=== PATIENT | female | born 1950 | race Caucasian/White ===

== ENCOUNTER 2018-06-14 09:31 | Observation (INO) | payer OTHER ==
[2018-06-14] MEDS ORDERED: NS 500 ML IV ONE (09:41)
[2018-06-14] MEDS ORDERED: MAG HYDROX/AL HYDROX/SIMETH 30 ML UDCUP PO ONE (09:49)
[2018-06-14] MEDS ORDERED: HYOSCYAMINE SULFATE 0.125 MG TAB PO ONE (09:49)
[2018-06-14] MEDS ORDERED: LIDOCAINE 2% VISCOUS 15 ML UDCUP PO ONE (09:49)
--- NOTE | 2018-06-14 09:49 | EDPHY ---
H & P Time Seen by Provider: 06/14/18 09:40 HPI/ROS: CHIEF COMPLAINT: Chest tightness HISTORY OF PRESENT ILLNESS: Patient is a 67-year-old female who developed some chest tightness on Saturday that she associated with previous episodes of GERD. Then on Saturday she began vomiting. She vomited about 6 times. No diarrhea. No fever. Her vomiting resolved on and Saturday however she is very sleepy and slept most of the day and only had soup to eat. Then yesterday evening about 12 hr ago she developed some chest tightness again that she again associated with heartburn. She has not taken any medications. She presented to an urgent care this morning who called an ambulance. She was given nitroglycerin and aspirin from EMS with no change in her symptoms. She does have a history of Graves disease and celiac disease. No history of cardiac disease. No previous cardiac testing. No fevers. No shortness of breath. Did drive from [place] last week. She has not had any leg pain or swelling. Severity: Moderate Modifying factors: None REVIEW OF SYSTEMS: Constitutional: denies: chills, fever, recent illness, recent injury EENTM: denies: blurred vision, double vision, nose congestion Respiratory: denies: cough, shortness of breath Cardiac: denies: chest pain, irregular heart rate, lightheadedness, palpitations Gastrointestinal/Abdominal: denies: abdominal pain, diarrhea, nausea, vomiting, blood streaked stools Genitourinary: denies: dysuria, frequency, hematuria, pain Musculoskeletal: denies: joint pain, muscle pain Skin: denies: lesions, rash, jaundice, bruising Neurological: denies: headache, numbness, paresthesia, tingling, dizziness, weakness Hematologic/Lymphatic: denies: blood clots, easy bleeding, easy bruising Immunologic/allergic: denies: HIV/AIDS, transplant 10 systems reviewed and negative except as noted EXAM: GENERAL: Well-appearing, well-nourished and in no acute distress. HEAD: Atraumatic, normocephalic. EYES: Pupils equal round and reactive to light, extraocular movements intact, sclera anicteric, conjunctiva are normal. ENT: TMs normal, nares patent, oropharynx clear without exudates. Moist mucous membranes. NECK: Normal range of motion, supple without lymphadenopathy or JVD. LUNGS: Breath sounds clear to auscultation bilaterally and equal. No wheezes rales or rhonchi. HEART: Regular rate and rhythm without murmurs, rubs or gallops. ABDOMEN: Soft, nontender, normoactive bowel sounds. No guarding, no rebound. No masses appreciated. BACK: No CVA tenderness, no spinal tenderness, step-offs or deformities EXTREMITIES: Normal range of motion, no pitting or edema. No clubbing or cyanosis. NEUROLOGICAL: Cranial nerves II through XII grossly intact. Normal speech, normal gait. 5/5 strength, normal movement in all extremities, normal sensation , normal reflexes PSYCH: Normal mood, normal affect. SKIN: Warm, dry, normal turgor, no visible rashes or lesions. Source: Patient Exam Limitations: No limitations - Medical/Surgical History Hx Asthma: No Hx Chronic Respiratory Disease: No Hx Diabetes: No Hx Cardiac Disease: No Hx Renal Disease: No Hx Cirrhosis: No Hx Alcoholism: No Hx HIV/AIDS: No Hx Splenectomy or Spleen Trauma: No - Family History Significant Family History: No pertinent family hx - Social History Alcohol Use: None Drug Use: None Constitutional: Initial Vital Signs Temperature (C) 36.6 C 06/14/18 09:31 Heart Rate 111 H 06/14/18 09:31 Respiratory Rate 18 06/14/18 09:31 Blood Pressure 134/112 H 06/14/18 09:31 O2 Sat (%) 94 06/14/18 09:31 O2 Delivery Mode Room Air Allergies/Adverse Reactions: No Known Allergies Allergy (Unverified 06/14/18 09:59) Home Medications: Medication Instructions Recorded Methimazole [Tapazole 5MG (*)] 5 mg PO DAILY 06/14/18 Medical Decision Making - Diagnostics EKG Interpretation: An EKG obtained and was read and documented in trace view. Please see trace view for full reading and report. Sinus rhythm, minimal ST depression inferior leads, no reciprocal changes A repeat EKG obtained and was read and documented in trace view. Please see trace view for full reading and report. Minimal ST elevation lead V2. Normalized in inferior leads A repeat EKG obtained and was read and documented in trace view. Please see trace view for full reading and report. Similar to previous Imaging Results: Imaging Impressions Chest X-Ray 06/14/18 09:42 Impression: Possible airways disease. Imaging: Discussed imaging studies w/ house calls nurse practitioner Radiologist ED Course/Re-evaluation: 10:20 a.m. Patient states that she feels completely better after the GI cocktail. Her lab work thus far is reassuring. Her D-dimer is age adjusted negative. Her EKG however is less reassuring. She had slight ST depression in her initial EKG. That is improved however she now has slight ST elevation less than 1 mm in the anterior leads. I suggested admission for serial EKGs and troponin. She and her daughter are in agreement with this plan. 10:40 a.m. I discussed the case with Dr. Alexis who agrees with admission. Will repeat EKG. Differential Diagnosis: Partial list of the Differential diagnosis considered include but were not limited to; chest pain, GERD and although unlikely based on the history and physical exam, I also considered PE, pneumonia, dissection. - Data Points Laboratory Results: Laboratory Results 06/14/18 09:35 06/14/18 09:35 06/14/18 06/14/18 06/14/18 09:43 09:35 09:35 WBC RBC Hgb Hct MCV MCH MCHC RDW Plt Count MPV Neut % (Auto) Lymph % (Auto) [place] % (Auto) Eos % (Auto) Baso % (Auto) Nucleat RBC Rel Count Absolute Neuts (auto) Absolute Lymphs (auto) Absolute Monos (auto) Absolute Eos (auto) Absolute Basos (auto) Absolute Nucleated RBC Immature Gran % Immature Gran # D-Dimer 0.53 ug/mLFEU H ug/mLFEU (0.00-0.50) Sodium 135 mEq/L mEq/L (135-145) Potassium 4.1 mEq/L mEq/L (3.5-5.2) Chloride 102 mEq/L mEq/L (97-110) Carbon Dioxide 21 mEq/l L mEq/l (22-31) Anion Gap 12 mEq/L mEq/L (6-14) BUN 32 mg/dL H mg/dL (7-23) Creatinine 0.7 mg/dL mg/dL (0.6-1.0) Estimated GFR > 60 Glucose 85 mg/dL mg/dL (70-100) Calcium 9.4 mg/dL mg/dL (8.5-10.4) Total Bilirubin 1.2 mg/dL mg/dL (0.1-1.4) Conjugated Bilirubin 0.4 mg/dL mg/dL (0.0-0.5) Unconjugated Bilirubin 0.8 mg/dL mg/dL (0.0-1.1) AST 21 IU/L IU/L (14-46) ALT 26 IU/L IU/L (9-52) Alkaline Phosphatase 85 IU/L IU/L (38-126) POC Troponin I 0.00 ng/mL ng/mL (0.00-0.08) Total Protein 7.1 g/dL g/dL (6.3-8.2) Albumin 4.6 g/dL g/dL (3.5-5.0) Lipase 101 IU/L IU/L (23-300) 06/14/18 09:35 WBC 7.15 10^3/uL 10^3/uL (3.80-9.50) RBC 5.80 10^6/uL H 10^6/uL (4.18-5.33) Hgb 17.0 g/dL H g/dL (12.6-16.3) Hct 51.4 % H % (38.0-47.0) MCV 88.6 fL fL (81.5-99.8) MCH 29.3 pg pg (27.9-34.1) MCHC 33.1 g/dL g/dL (32.4-36.7) RDW 12.2 % % (11.5-15.2) Plt Count 294 10^3/uL 10^3/uL (150-400) MPV 9.5 fL fL (8.7-11.7) Neut % (Auto) 60.7 % % (39.3-74.2) Lymph % (Auto) 29.2 % % (15.0-45.0) [place] % (Auto) 8.3 % % (4.5-13.0) Eos % (Auto) 1.0 % % (0.6-7.6) Baso % (Auto) 0.7 % % (0.3-1.7) Nucleat RBC Rel Count 0.0 % % (0.0-0.2) Absolute Neuts (auto) 4.34 10^3/uL 10^3/uL (1.70-6.50) Absolute Lymphs (auto) 2.09 10^3/uL 10^3/uL (1.00-3.00) Absolute Monos (auto) 0.59 10^3/uL 10^3/uL (0.30-0.80) Absolute Eos (auto) 0.07 10^3/uL 10^3/uL (0.03-0.40) Absolute Basos (auto) 0.05 10^3/uL 10^3/uL (0.02-0.10) Absolute Nucleated RBC 0.00 10^3/uL 10^3/uL (0-0.01) Immature Gran % 0.1 % % (0.0-1.1) Immature Gran # 0.01 10^3/uL 10^3/uL (0.00-0.10) D-Dimer Sodium Potassium Chloride Carbon Dioxide Anion Gap BUN Creatinine Estimated GFR Glucose Calcium Total Bilirubin Conjugated Bilirubin Unconjugated Bilirubin AST ALT Alkaline Phosphatase POC Troponin I Total Protein Albumin Lipase Medications Given: Discontinued Medications Al Hydroxide/Mg Hydroxide (Maalox Susp) 30 ml PO ONCE ONE Stop: 06/14/18 09:50 Last Admin: 06/14/18 09:59 Dose: 30 ml Hyoscyamine Sulfate (Levsin, Hyomax-Sl) 0.25 mg PO ONCE ONE Stop: 06/14/18 09:50 Last Admin: 06/14/18 09:59 Dose: 0.25 mg Sodium Chloride (Ns) 500 mls @ 1,000 mls/hr IV EDNOW ONE PRN Reason: Protocol Stop: 06/14/18 10:10 Last Admin: 06/14/18 09:45 Dose: 500 mls Lidocaine (Lidocaine 2% Viscous) 15 ml PO ONCE ONE Stop: 06/14/18 09:50 Last Admin: 06/14/18 09:59 Dose: 15 ml Point of Care Test Results: Chemistry 06/14/18 09:43 POC Troponin I 0.00 ng/mL ng/mL (0.00-0.08) Departure - Departure Disposition: [facility] Acute Clinical Impression: Chest pain Qualifiers: Chest pain type: unspecified Qualified Code(s): R07.9 - Chest pain, unspecified Condition: Fair
[2018-06-14 09:51] LABS: PLATELET COUNT 294 10^3/uL (150-400)
--- NOTE | 2018-06-14 09:51 | CPEKG ---
Test Reason : OPEN Blood Pressure : / mmHG Vent. Rate : 101 BPM Atrial Rate : 101 BPM P-R Int : 139 ms QRS Dur : 081 ms QT Int : 355 ms P-R-T Axes : 072 044 030 degrees QTc Int : 461 ms Sinus tachycardia Minimal ST depression, inferior leads Confirmed by Jacob Rodrigez ([id number]) on 06/14/2018 9:50:43 AM Referred By: Confirmed By:Jacob Rodrigez
--- NOTE | 2018-06-14 10:22 | CPEKG ---
Test Reason : OPEN Blood Pressure : / mmHG Vent. Rate : 071 BPM Atrial Rate : 072 BPM P-R Int : 149 ms QRS Dur : 084 ms QT Int : 411 ms P-R-T Axes : 068 026 020 degrees QTc Int : 447 ms Sinus rhythm Minimal ST elevation, anterior leads Confirmed by Jacob Rodrigez ([id number]) on 06/14/2018 10:21:29 AM Referred By: Confirmed By:Jacob Rodrigez
--- NOTE | 2018-06-14 11:09 | CPEKG ---
Test Reason : OPEN Blood Pressure : / mmHG Vent. Rate : 067 BPM Atrial Rate : 067 BPM P-R Int : 148 ms QRS Dur : 080 ms QT Int : 424 ms P-R-T Axes : 065 027 027 degrees QTc Int : 448 ms Sinus rhythm Confirmed by Jacob Rodrigez ([id number]) on 06/14/2018 11:08:27 AM Referred By: Confirmed By:Jacob Rodrigez
[2018-06-14 11:59] VITALS: BP 132/61
--- NOTE | 2018-06-14 13:00 | GHP ---
DATE OF ADMISSION: 06/14/2018 CHIEF COMPLAINT: Chest pain. HISTORY OF PRESENT ILLNESS: This is a 67-year-old female, presents with chest pain. Recent history notable for having a GI illness which started Saturday, she had 6 episodes of emesis. She had what she describes as GERD at that time which resolved. Since then, she has felt somewhat fatigued and not back to her normal self, but her GI symptoms have resolved. That is until last night when she had epigastric/chest pain that is nonexertional, described as a pressure sensation. This persisted overnight, thus, she presented to the ED today. It was relieved in the ED today with a GI cocktail. When I am seeing her, she describes no chest pain. PAST MEDICAL/SURGICAL HISTORY: 1. Hypothyroid. 2. Tonsillectomy. 3. Oral surgery. MEDICATIONS: Please see medication reconciliation. ALLERGIES: No known drug allergies. FAMILY HISTORY: No early heart disease in her family. SOCIAL HISTORY: She drinks alcohol. She does not smoke. REVIEW OF SYSTEMS: 10-point review of systems is conducted and is negative except per HPI. PHYSICAL EXAM: VITAL SIGNS: Blood pressure 132/61, heart rate 68, respiration rate 15, saturating at 94% on room air. Temperature 37.3. GENERAL: The patient is a pleasant female who is resting comfortably. No acute distress. HEENT: Shows her to be normocephalic, atraumatic. CARDIOVASCULAR: Regular rate and rhythm. No murmurs, rubs, or gallops. PULMONARY: Lungs clear to auscultation bilaterally. ABDOMEN: Soft, nontender, nondistended. SKIN: Shows no rash. : No Kim. NEUROLOGIC: Shows her to be alert and oriented x3. She is moving all extremities. PSYCHIATRIC: Shows normal mood and affect. LABORATORY: Hemoglobin 17. D-dimer 0.5. Bicarb is 21, BUN 32. Troponin is negative. Lipase is negative. DATA: 1. Discussed with Dr. Rodrigez. Will admit to PCU. 2. Personally viewed and interpreted her EKGs as well as her chest x-ray. Her chest x-ray shows normal-sized heart. No acute infiltrates. Radiology read as possible airways disease. EKG shows initially some ST depression in her inferior leads. Her subsequent EKGs show mild ST elevation in V1 and V2, this may be a J-point elevation. She has no olds to compare this to. IMPRESSION AND PLAN: 1. Chest pain: Discussed with Dr. Parr. She has negative troponin after approximately 12 hours of pain. We will check another stat troponin now. Will not follow chest pain protocol exactly as this has been in discussion with Cardiology. Would consider ordering a stress test, EKG treadmill today. Dr. Parr is reviewing her EKGs to see if he feels this will be interpretable. Would also consider discharging her with close outpatient followup as she has a HEART score of approximately 3. Further workup will depend on additional conversations and lab testing. 2. Indeterminate D-dimer: This is negative for her age. She does not have any other signs or symptoms of a deep venous thrombosis, thus, will not pursue CT angiogram. 3. Erythrocythemia: Unclear if this is chronic or more long-term. She does have a mild BUN elevation, thus, this may indicate some dehydration from her previous illness. /[id number]/MODL MTDD
--- NOTE | 2018-06-14 13:25 | PDCARCONS ---
Cardiology Consult Reason for Consult: Abnormal ECG Chief Complaint: GI "bug" about 3-4 days prior Requesting Physician: Hospitalist team History of Present Illness: Patient is a 67 y/o female with unremarkable past cardiovascular history (no CAD , HTN, HLP, or DM), who presented to [facility] ER with complaints of mild chest tightness. Four days prior, the patient had issues with GI discomfort, and subsequent emesis (X6). Since that time, the patient has felt better, but both ER physician and hospitalist were told of chest tightness. No gideon "chest pains" have been noted. No PND or orthopnea. The epigastric discomfort was noted last night, and is more a pressure than anything. Given the symptoms were noted last night into today, she opted for assessment in the ER. Initial troponin (POC) was normal. First ECG with non specific ST/T wave changes (1 mm depression) to the inferior leads. Two subsequent ECGs with normal sinus rhythm and no ST/T wave changes noted. In the ER, the patient was given a GI cocktail, and this seemed to alleviate the pressure that was noted. At present, the patient is resting comfortably in bed without symptoms. Remainder of 12 point review of systems was unremarkable. History Information - Allergies/Home Medication List Allergies/Adverse Reactions: No Known Allergies Allergy (Unverified 06/14/18 09:59) Home Medications: Methimazole [Tapazole 5MG (*)] 5 mg PO DAILY 06/14/18 [Last Taken Unknown] I have personally reviewed and updated: family history, medical history, social history, surgical history Past Medical History: - Past Medical History GERD Additional medical history: hypothyroidism - Surgical History Reports: no pertinent surgical hx - Family History Positive for: non-pertinent - Social History Smoking Status: Never smoked Alcohol Use: Rarely Drug Use: None Cardiac History - Cardiac History Cardiac Risk Factors: none Timing/Duration: Days Severity: mild Severity Scale: 2 Location: epigastric Activities at Onset: none Modifying Factors: improves with: antacids Associated Symptoms: denies symptoms HIRAM Risk Evaluation age greater or equal to 65: yes greater or equal to 3 CAD risk factors: no known CAD(stenosis greater or eqaul to 50%): no ASA use in past 7 days: no severe angina(greater or equal to 2 episodes in 24hrs): no EKG ST changes greater or equal to 0.5mm: no positive cardiac marker: no Total Score: 1 HIRAM Score: 4.7% risk Physical Exam Physical Exam: Temp Pulse Resp BP Pulse Ox 37.3 C 68 15 132/61 H 94 06/14/18 11:58 06/14/18 11:58 06/14/18 11:58 06/14/18 11:58 06/14/18 11:58 Constitutional: no apparent distress, appears nourished, not in pain Eyes: PERRL, EOMI Ears, Nose, Mouth, Throat: moist mucous membranes, hearing normal, ears appear normal Cardiovascular: regular rate and rhythym, no murmur, rub, or gallop, pulses symmetric bilaterally, No JVD, No edema Peripheral Pulses: 2+: dorsalis-pedis (R), dorsalis-pedis (L) Respiratory: no respiratory distress, no rales or rhonchi, clear to auscultation Gastrointestinal: normoactive bowel sounds, soft, non-tender abdomen Skin: warm, normal color Musculoskeletal: full muscle strength, no muscle tenderness, normal joint ROM Neurologic: AAOx3, sensation intact bilaterally, CN II-XII Intact Psychiatric: interacting appropriately, not anxious, not encephalopathic Lab and Imaging 06/14/18 09:35 06/14/18 09:35 WBC 7.15 10^3/uL (3.80-9.50) 06/14/18 09:35 RBC 5.80 10^6/uL (4.18-5.33) H 06/14/18 09:35 Hgb 17.0 g/dL (12.6-16.3) H 06/14/18 09:35 Hct 51.4 % (38.0-47.0) H 06/14/18 09:35 MCV 88.6 fL (81.5-99.8) 06/14/18 09:35 MCH 29.3 pg (27.9-34.1) 06/14/18 09:35 MCHC 33.1 g/dL (32.4-36.7) 06/14/18 09:35 RDW 12.2 % (11.5-15.2) 06/14/18 09:35 Plt Count 294 10^3/uL (150-400) 06/14/18 09:35 MPV 9.5 fL (8.7-11.7) 06/14/18 09:35 Neut % (Auto) 60.7 % (39.3-74.2) 06/14/18 09:35 Lymph % (Auto) 29.2 % (15.0-45.0) 06/14/18 09:35 [place] % (Auto) 8.3 % (4.5-13.0) 06/14/18 09:35 Eos % (Auto) 1.0 % (0.6-7.6) 06/14/18 09:35 Baso % (Auto) 0.7 % (0.3-1.7) 06/14/18 09:35 Nucleat RBC Rel Count 0.0 % (0.0-0.2) 06/14/18 09:35 Absolute Neuts (auto) 4.34 10^3/uL (1.70-6.50) 06/14/18 09:35 Absolute Lymphs (auto) 2.09 10^3/uL (1.00-3.00) 06/14/18 09:35 Absolute Monos (auto) 0.59 10^3/uL (0.30-0.80) 06/14/18 09:35 Absolute Eos (auto) 0.07 10^3/uL (0.03-0.40) 06/14/18 09:35 Absolute Basos (auto) 0.05 10^3/uL (0.02-0.10) 06/14/18 09:35 Absolute Nucleated RBC 0.00 10^3/uL (0-0.01) 06/14/18 09:35 Immature Gran % 0.1 % (0.0-1.1) 06/14/18 09:35 Immature Gran # 0.01 10^3/uL (0.00-0.10) 06/14/18 09:35 D-Dimer 0.53 ug/mLFEU (0.00-0.50) H 06/14/18 09:35 Sodium 135 mEq/L (135-145) 06/14/18 09:35 Potassium 4.1 mEq/L (3.5-5.2) 06/14/18 09:35 Chloride 102 mEq/L (97-110) 06/14/18 09:35 Carbon Dioxide 21 mEq/l (22-31) L 06/14/18 09:35 Anion Gap 12 mEq/L (6-14) 06/14/18 09:35 BUN 32 mg/dL (7-23) H 06/14/18 09:35 Creatinine 0.7 mg/dL (0.6-1.0) 06/14/18 09:35 Estimated GFR > 60 06/14/18 09:35 Glucose 85 mg/dL (70-100) 06/14/18 09:35 Calcium 9.4 mg/dL (8.5-10.4) 06/14/18 09:35 Total Bilirubin 1.2 mg/dL (0.1-1.4) 06/14/18 09:35 Conjugated Bilirubin 0.4 mg/dL (0.0-0.5) 06/14/18 09:35 Unconjugated Bilirubin 0.8 mg/dL (0.0-1.1) 06/14/18 09:35 AST 21 IU/L (14-46) 06/14/18 09:35 ALT 26 IU/L (9-52) 06/14/18 09:35 Alkaline Phosphatase 85 IU/L (38-126) 06/14/18 09:35 POC Troponin I 0.00 ng/mL (0.00-0.08) 06/14/18 09:43 Total Protein 7.1 g/dL (6.3-8.2) 06/14/18 09:35 Albumin 4.6 g/dL (3.5-5.0) 06/14/18 09:35 Lipase 101 IU/L (23-300) 06/14/18 09:35 Visualized and Interpreted Chest x-ray results: Yes Chest X-ray Interpretation: no infiltrate, normal, normal heart size EKG Interpretation: Positive for: normal sinsus rhythm, NS ST wave abnormalities (only noted on the initial ECG) Telemetry: normal sinus rhythm A/P Assessment: Patient is a 67 y/o female with history of GERD, and a recent GI illness (with emesis), who presented to [facility] ER after chest pressure (no pain) was noted. Initial ECG with non specific ST/T wave changes noted (<1 mm of depression), and two further ECGs with normal sinus rhythm and no ECG changes noted. Initial POC troponin was normal. No further symptoms have been noted. Low CV risk for CAD given lack of typical CV risks. Plan: (1) Reassessment of troponin (non POC) to ensure, with time, that no change in this biomarker is noted (2) Assessment of cholesterol (for more retirement CV risk assessment) (3) [place], and would recommend (should biomarker #2 be within normal limits), an ETT (non nuclear) for better risk stratification of this patient prior to return to home ([place]) Patient was in agreement with these plans. We are awaiting labs and Treadmill Tech to perform said testing
--- NOTE | 2018-06-14 14:24 | PDCARST ---
CAR Stress Test Results Type of Stress Test: Terrence protocol stress testing Indication: chest tightness Description of Procedure: After consent was signed, and procedure details were discussed with patient, graded exercise stress testing was started. Heart rate , real time telemetry, and oxygen pulse oximetry were monitored. Impression: No ST/T wave changes were noted. No chest pains or pressure. 8 minutes of exercise with peak heart rate to 151 bpm (98% of max predicted for age) with Mcgarry Treadmill Score of +8 (low CV risk). Conclusion: Unremarkable exercise stress testing
--- NOTE | 2018-06-14 15:00 | GDS ---
FINAL DIAGNOSES: 1. Chest pain. 2. Gastroenteritis. 3. Hypothyroid. 4. Mild erythrocythemia. HOSPITAL COURSE: A 67-year-old female admitted with chest pain. This was associated with vomiting. That resolved immediately on taking a GI cocktail. She was admitted for further workup because she had ST depressions in her inferior leads, approximately 1 mm on her first EKG. She had 2 troponins w hich were negative after having had chest pain for approximately 16 hours at the time of the second t roponin. She underwent an EKG treadmill stress test which was negative. Because of this, I think th is is most likely gastrointestinal in nature. I have recommended Tums and Zantac as needed. Notably , she had her cholesterol checked and her LDL was 127 which should be followed, but does not need dir ected treatment at this point. I have explained all this to her and she is discharged in stable cond ition. /[id number]/MODL
[2018-06-15] MEDS ORDERED: METHIMAZOLE 5 MG TAB PO SCH (09:00)
== END 2018-06-14 15:15 | disposition home or self-care (01) ==
LOC: EDBD 09:31 → F2W 11:45
PROVIDERS: ADMIT Student in an Organized Health Care Education/Training Program; ATTEND Student in an Organized Health Care Education/Training Program
DX: R07.9 Chest pain, unspecified (principal); K52.9 Noninfective gastroenteritis and colitis, unspecified; E03.9 Hypothyroidism, unspecified; D75.1 Secondary polycythemia
CPT/HCPCS: 71046; 93005; 93017; G0378; 84484-ER